=== PATIENT | female | born 1990 ===

== ENCOUNTER 2018-07-06 15:24 | Emergency (ER) | payer SELFPAY ==
[2018-07-06 16:56] VITALS: BP 119/71
[2018-07-06] MEDS ORDERED: Ibuprofen TAB* 600 MG PO ONE (17:01)
--- NOTE | 2018-07-06 17:01 | UC ---
Throat Pain/Nasal Josh HPI - HPI Summary HPI Summary: 27 yo female presents with sore throat, headache, fever, and nausea for the last 2 days. She took 650mg tylenol at 1500 today with mild relief of symptoms. She is able to eat and drink, but does not feel hungry. - History of Current Complaint Chief Complaint: UCGeneralIllness Stated Complaint: THROAT PAIN Time Seen by Provider: 07/06/18 17:01 Hx Obtained From: Patient Hx Last Menstrual Period: <2 weeks ago Onset/Duration: Gradual Onset Severity: Severe Pain Intensity: 10 Pain Scale Used: 0-10 Numeric - Allergies/Home Medications Allergies/Adverse Reactions: Allergies Allergy/AdvReac Type Severity Reaction Status Date / Time No Known Allergies Allergy Verified 07/06/18 16:56 Home Medications: Home Medications Acetaminophen [Pain Reliever] 1,000 mg PO ONCE PRN 07/06/18 [History Confirmed 07/06/18] PMH/Surg Hx/FS Hx/Imm Hx - Additional Past Medical History Additional PMH: None - Surgical History Surgical History: None - Family History Known Family History: Positive: None - Social History Occupation: Student Lives: With Family Alcohol Use: Rare Substance Use Type: None Smoking Status (MU): Never Smoked Tobacco Review of Systems All Other Systems Reviewed And Are Negative: Yes Constitutional: Positive: Fever, Chills, Fatigue Skin: Positive: Negative Eyes: Positive: Negative ENT: Positive: Sore Throat Respiratory: Positive: Negative Cardiovascular: Positive: Negative Gastrointestinal: Positive: Negative Neurovascular: Positive: Negative Neurological: Positive: Negative Psychological: Positive: Negative Physical Exam - Summary Physical Exam Summary: GENERAL: Mildly ill appearing. SKIN: No rashes, sores, lesions, or open wounds. HEENT: Head: AT/NC Eyes: Conjunctiva clear without inflammation or discharge. Ears: Hearing grossly normal. TMs intact, no bulging, erythema, or edema. Nose: Nasal mucosa pink and moist. NTTP maxillary and frontal sinus. Throat: Posterior oropharynx moderate erythema and 2+ tonsillar enlargement. No exudates. Uvula midline. No hoarse voice or muffled voice. NECK: Supple. TTP tonsillar LAD. CHEST: CTAB. No r/r/w. No accessory muscle use. Breathing comfortably and in no distress. CV: RRR. Without m/r/g. Pulses intact. Cap refill <2seconds NEURO: Alert. PSYCH: Age appropriate behavior. Triage Information Reviewed: Yes Vital Signs: Initial Vital Signs Temp 102.7 F 07/06/18 16:50 Pulse 116 07/06/18 16:50 Resp 18 07/06/18 16:50 BP 119/71 07/06/18 16:50 Pulse Ox 99 07/06/18 16:50 Laboratory Tests 07/06/18 07/06/18 17:09 17:11 Influenza A (Rapid) Negative Influenza B (Rapid) Negative Group A Strep Rapid Positive A Vital Signs Reviewed: Yes Throat Pain/Nasal Course/Dx - Course Course Of Treatment: POC strep positive. In the clinic pt was given ibuprofen 600mg for her fever. Rx for amoxicillin for strep pharyngitis. - Differential Dx/Diagnosis Provider Diagnosis: Strep pharyngitis Discharge - Sign-Out/Discharge Documenting (check all that apply): Patient Departure All imaging exams completed and their final reports reviewed: No Studies - Discharge Plan Condition: Stable Disposition: HOME Prescriptions: Amoxicillin PO (*) [Amoxicillin 500 MG CAP*] 500 mg PO Q12H #20 cap Ondansetron ODT TAB* [Zofran 4 MG Odt TAB*] 4 mg PO Q8H PRN #12 tab.odt PRN Reason: Nausea Patient Education Materials: Strep Throat (ED) Referrals: No Primary Care Phys,NOPCP [Primary Care Provider] - Additional Instructions: If you develop a fever, shortness of breath, chest pain, new or worsening symptoms - please call your PCP or go to the ED. - Billing Disposition and Condition Condition: STABLE Disposition: Home
== END 2018-07-06 17:30 | disposition home or self-care (01) ==
LOC: UCEAST 15:24
DX: J02.0 Streptococcal pharyngitis (principal)
CPT/HCPCS: 87651; 99202; A9270-GY; G0463

== ENCOUNTER 2018-08-03 16:30 | Emergency (ER) | payer SELFPAY ==
[2018-08-03 17:25] VITALS: BP 113/62
--- NOTE | 2018-08-03 17:56 | UC ---
Upper Extremity HPI - HPI Summary HPI Summary: pain in the right thumb after skiing, now with persistent pain, had been using ski poles - History of Current Complaint Chief Complaint: UCUpperExtremity Stated Complaint: HAND INJURY Time Seen by Provider: 08/03/18 17:27 Hx Obtained From: Patient Hx Last Menstrual Period: NOW ?: No Onset/Duration: Sudden Onset Severity Initially: Moderate Severity Currently: Moderate Pain Intensity: 3 Location Of Pain: Is Discrete @ Character: Sharp, Throbbing Aggravating Factor(s): Movement Alleviating Factor(s): Rest - Allergies/Home Medications Allergies/Adverse Reactions: Allergies Allergy/AdvReac Type Severity Reaction Status Date / Time No Known Allergies Allergy Verified 08/03/18 17:25 Home Medications: Home Medications Ibuprofen TAB* [Advil TAB*] 200 mg PO ONCE PRN 08/03/18 [History Confirmed 08/03] PMH/Surg Hx/FS Hx/Imm Hx Previously Healthy: Yes - Surgical History Surgical History: None - Family History Known Family History: Positive: None - Social History Alcohol Use: None Substance Use Type: None Smoking Status (MU): Never Smoked Tobacco Review of Systems All Other Systems Reviewed And Are Negative: Yes Constitutional: Positive: Negative Skin: Positive: Negative Eyes: Positive: Negative ENT: Positive: Negative Respiratory: Positive: Negative Cardiovascular: Positive: Negative Gastrointestinal: Positive: Negative Genitourinary: Positive: Negative Physical Exam - Summary Physical Exam Summary: swelling pain in the base of the right thumb and the dip joint Triage Information Reviewed: Yes Appearance: Well-Appearing Vital Signs: Initial Vital Signs Temp 37.1 C 08/03/18 17:20 Pulse 92 08/03/18 17:20 Resp 16 08/03/18 17:20 BP 113/62 08/03/18 17:20 Pulse Ox 98 08/03/18 17:20 Vital Signs Reviewed: Yes Eye Exam: Normal ENT Exam: Normal Musculoskeletal Exam: Other - swelling pain in the base of the right thumb and DIP joint Upper Extremity Course/Dx - Differential Dx/Diagnosis Provider Diagnosis: Skier's thumb Discharge - Sign-Out/Discharge Documenting (check all that apply): Patient Departure All imaging exams completed and their final reports reviewed: Yes - Discharge Plan Condition: Fair Disposition: HOME Patient Education Materials: Skier's Thumb (ED) Referrals: David Townsend MD [Medical Doctor] - No Primary Care PhysJACKCP [Primary Care Provider] - Additional Instructions: thumb spica - Billing Disposition and Condition Condition: FAIR Disposition: Home
== END 2018-08-03 18:20 | disposition home or self-care (01) ==
LOC: UCEAST 16:30
DX: S63.641A Sprain of metacarpophalangeal joint of right thumb, initial encounter (principal); Y93.23 Activity, snow (alpine) (downhill) skiing, snowboarding, sledding, tobogganing and snow tubing; Y92.9 Unspecified place or not applicable
CPT/HCPCS: 99212; G0463